=== PATIENT | male | born 1985 | race Caucasian/White ===

== ENCOUNTER 2025-02-01 09:10 | Outpatient (CLI) | payer BC | END 2025-02-01 09:11 | disposition home or self-care (01) | LOC: CSHSLEEP 09:10 | PROVIDERS: ATTEND Internal Medicine | DX: G47.33 Obstructive sleep apnea (adult) (pediatric) (principal); R53.83 Other fatigue; E66.9 Obesity, unspecified; Z68.41 Body mass index [BMI] 40.0-44.9, adult | CPT/HCPCS: 95800 ==